=== PATIENT | male | born 1975 | race Two or more races ===

== ENCOUNTER → 2024-06-23 | Outpatient (CLI) | payer MEDICAID, SELFPAY ==
--- NOTE | 2024-06-23 14:42 | XR_ITS ---
Examination: Ankle Bilateral, 6 views Technique: AP oblique lateral each ankle total 6 views Date and time of exam: June 23, 2024 1445 hours INDICATIONS: Injury to both ankles one month ago, ankle pain. FINDINGS: No acute ankle fractures No ankle dislocation No opaque foreign bodies IMPRESSION: No acute ankle fractures Mild bilateral osteoarthritis tibiotalar joints
== END | disposition home or self-care (01) ==
LOC: CDIM 14:39
PROVIDERS: PCP Otolaryngology; Referring Provider Otolaryngology; Visit Provider Otolaryngology
DX: S99.912A Unspecified injury of left ankle, initial encounter (principal); S99.911A Unspecified injury of right ankle, initial encounter; X58.XXXA Exposure to other specified factors, initial encounter; M19.072 Primary osteoarthritis, left ankle and foot; M19.071 Primary osteoarthritis, right ankle and foot
CPT/HCPCS: 73610

== ENCOUNTER 2024-12-18 09:24 | Outpatient (RCR) | payer MEDICAID, SELFPAY ==
--- NOTE | 2024-12-18 10:00 | XR_ITS ---
Examination: SAUL, hepatobiliary radioisotope scan Gallbladder ejection fraction study. Date and time of exam: 12/18/2024 at 12:25 p.m. INDICATION: Fatty liver, left upper quadrant pain. COMPARISON: None. Technique: 5.7 mCi of 99M Hepatolite administered. Serial imaging then obtained from immediate through 60 minutes. 1.7 mcg selective catheter Kinevac administered for gallbladder ejection fraction study. Findings: Radioisotope activity within the liver is reasonably homogenous. Gallbladder, common bile duct small bowel activity noted. Gallbladder ejection fraction is within normal limits at 77%. Impression: Negative exam for acute or chronic cholecystitis. Gallbladder ejection fraction is 77%.
== END 2024-12-23 23:59 | disposition home or self-care (01) ==
LOC: SNUC 09:24
PROVIDERS: PCP Family Medicine; Referring Provider Specialist; Visit Provider Specialist
DX: R10.13 Epigastric pain (principal); K76.0 Fatty (change of) liver, not elsewhere classified
CPT/HCPCS: 78227; A9537; J2805